=== PATIENT | female | born 1950 | race Caucasian/White ===

== ENCOUNTER 2018-09-17 11:34 | Day surgery (SDC) | payer OTHER, SELFPAY ==
[2018-09-14 10:36] VITALS: BMI 25.2
[2018-09-17 11:51] VITALS: BP 128/73; PULSE 83; RESP 16; TEMP 36.8; O2SAT 98; BMI 25.2
--- NOTE | 2018-09-17 13:14 | PM.OP.1 ---
Procedure & Clinicians Procedure: Arthrodesis 1st MTPJ, left foot Same procedure as scheduled: Yes Indications: Painful bunion/arthritis, left foot Surgeon: Rafa Calles Click Yes if Unassisted: Yes Operative Notes Prosthetic devices, grafts, tissues, transplants, or devices: [place] 28 1st MTPJ locking plate and screws Estimated Blood Loss (mL): 5 Blood products transfused: none Procedure in detail: Operation: Patient was taken from the day surgery back to the OR via gurney, after having been antibiotic prophylaxis. She was placed on the OR table in the supine position. General anesthesia was induced by the anesthesiologist, followed by local anesthetic blockade with 50 50 lidocaine. A high thigh tourniquet was placed, however, it was not utilized throughout the case. Foot was then prepped and draped in the usual sterile fashion from toes to knee. Procedure: Arthrodesis, 1st MTP joint, left foot (40154) Attention was directed toward the dorsum of the left foot. Just medial to midline, a longitudinal incision was placed centered over the 1st MTP joint, medial to the EHL tendon. Sharp and blunt dissection were carried down through the subcutaneous tissue layer, taking care to retract all vital structures and cauterized as necessary for adequate hemostasis. First MTP was then mobilized to allow for adequate visualization. There was extensive osteophytic deformity off the dorsum of the joint which required removal. Using appropriate instrumentation of power reamers, the 1st metatarsal head and base of the proximal phalanx was denuded of remaining cartilage. It was then fenestrated 15-20 times with a .054 in K-wire. Toe was then placed into anatomical alignment, which for this patient, was just a couple degrees adducted, temporarily pinned and then permanently fixated with an appropriately sized 4.0 partially threaded lag screw from medial to lateral, using the included plate jig. Good compression was found on tightening down that screw. The remaining fixation was then applied over the dorsum through the various locking holes utilizing a combination of 2.7 mm screws in the phalanx and 3.5 mm locking screws in the 1st metatarsal. Fixation was then confirmed with intraop fluoroscopy. The wound was aggressively irrigated with antibiotic solution. Closure was then performed in layers utilizing 3-0, 4-0, and 4-0 Vicryl for the capsule, subcu and skin respectively. Steri-Strips were placed, postop injection of 0.5% Marcaine plain administered and a light gauze compression bandage was applied. Patient will be placed into her removable cast boot in the recovery room. Patient tolerated the procedure and anesthesia without any apparent complications. She left the OR with vital signs stable and digital perfusion intact. She will be allowed to bear partial weight on the foot as long as she has boot in place. No be seen for 1st p.o. be the [place] office next week. Patient already has a postop appointment set up as well as been given a prescription for postop analgesics. Condition: stable Disposition: PACU Plan for aftercare: Fu visit set for the [place] office next week.
--- NOTE | 2018-09-17 13:20 | P.OP_ITS ---
Procedure & Clinicians Procedure: Arthrodesis 1st MTPJ, left foot Same procedure as scheduled: Yes Indications: Painful bunion/arthritis, left foot Surgeon: Rafa Calles Click Yes if Unassisted: Yes Operative Notes Prosthetic devices, grafts, tissues, transplants, or devices: [place] 28 1st MTPJ locking plate and screws Estimated Blood Loss (mL): 5 Blood products transfused: none Procedure in detail: Operation: Patient was taken from the day surgery back to the OR via gurney, after having been antibiotic prophylaxis. She was placed on the OR table in the supine position. General anesthesia was induced by the anesthesiologist, followed by local anesthetic blockade with 50 50 lidocaine. A high thigh tourniquet was placed, however, it was not utilized throughout the case. Foot was then prepped and draped in the usual sterile fashion from toes to knee. Procedure: Arthrodesis, 1st MTP joint, left foot (59006) Attention was directed toward the dorsum of the left foot. Just medial to midline, a longitudinal incision was placed centered over the 1st MTP joint, medial to the EHL tendon. Sharp and blunt dissection were carried down through the subcutaneous tissue layer, taking care to retract all vital structures and cauterized as necessary for adequate hemostasis. First MTP was then mobilized to allow for adequate visualization. There was extensive osteophytic deformity off the dorsum of the joint which required removal. Using appropriate instrumentation of power reamers, the 1st metatarsal head and base of the proximal phalanx was denuded of remaining cartilage. It was then fenestrated 15- 20 times with a .054 in K-wire. Toe was then placed into anatomical alignment, which for this patient, was just a couple degrees adducted, temporarily pinned and then permanently fixated with an appropriately sized 4.0 partially threaded lag screw from medial to lateral, using the included plate jig. Good compression was found on tightening down that screw. The remaining fixation was then applied over the dorsum through the various locking holes utilizing a combination of 2.7 mm screws in the phalanx and 3.5 mm locking screws in the 1st metatarsal. Fixation was then confirmed with intraop fluoroscopy. The wound wa s aggressively irrigated with antibiotic solution. Closure was then performed in layers utilizing 3-0, 4-0, and 4-0 Vicryl for the capsule, subcu and skin respectively. Steri-Strips were placed, postop injection of 0.5% Marcaine plain administered and a light gauze compression bandage was applied. Patient will be placed into her removable cast boot in the recovery room. Patient tolerated the procedure and anesthesia without any apparent complications. She left the OR with vital signs stable and digital perfusion intact. She will be allowed to bear partial weight on the foot as long as she has boot in place. No be seen for 1st p.o. be the [place] office next week. Patient already has a postop appointment set up as well as been given a prescription for postop analgesics. Condition: stable Disposition: PACU Plan for aftercare: Fu visit set for the [place] office next week.
[2018-09-17] MEDS: CEFAZOLIN 2 GM/100 ML FROZ.PIGGY IV (13:42)
--- NOTE | 2018-09-17 13:56 | SUR.OPER ---
Supine on padded OR bed, head on pillow, arms secured on padded arm boards at <90 degrees abduction, legs uncrossed, safety belt at thigh, tape over blanket over lower legs.
[2018-09-17] MEDS: LIDOCAINE 2% INJ SDV 5 ML INJ (14:03)
[2018-09-17] MEDS: LIDOCAINE 1% W/EPI INJ 20 ML INJ (14:04)
--- NOTE | 2018-09-17 14:08 | SUR.OPER ---
TOURNIQUET APPLLIED BUT NOT INFLATED.
[2018-09-17] MEDS: BUPIVACAINE 0.5% (PF) VIAL 30 ML INJ (15:03)
[2018-09-17] MEDS: LACTATED RINGERS 1,000 ML 42 ML IV (15:08)
[2018-09-17 15:17] VITALS: BP 125/76; PULSE 75; RESP 15; TEMP 36.3; O2SAT 98
[2018-09-17] MEDS: fentaNYL 100 MCG/2 ML INJ 50 MCG IV (15:29)
[2018-09-17 15:32] VITALS: BP 127/76; PULSE 78; RESP 15; O2SAT 97
[2018-09-17] MEDS: HYDROCODONE/ACET 5/325 TABLET 1 TAB PO (15:50)
[2018-09-17 16:00] VITALS: BP 134/76; PULSE 67; RESP 15; TEMP 36.1; O2SAT 99
[2018-09-17 16:25] VITALS: BP 134/75; PULSE 64; RESP 16; TEMP 36.1; O2SAT 99
== END 2018-09-17 16:33 ==
LOC: OR 11:38
PROVIDERS: Family Provider Family Medicine; Visit Provider Podiatrist
PROC: (CPT 28750; principal; 2018-09-17 13:00)
DX: M20.22 Hallux rigidus, left foot (principal); M19.072 Primary osteoarthritis, left ankle and foot
CPT/HCPCS: 28750; J0690; J2250; J2704; J3010

== ENCOUNTER → 2019-08-09 08:50 | Outpatient (CLI) | payer OTHER, SELFPAY | PROVIDERS: PCP Family Medicine | DX: M85.851 Other specified disorders of bone density and structure, right thigh (principal); Z78.0 Asymptomatic menopausal state | CPT/HCPCS: 77080 ==

== ENCOUNTER → 2022-07-23 11:28 | Outpatient (CLI) | payer MEDICARE, SELFPAY ==
[2022-07-24 20:04] LABS: Add Manual Diff / Slide Review NO; Basophils Absolute Auto 0 /uL (0-100); Basophils Percent Auto 0.6 % (0-2); Eosinophils Absolute Auto 100 /uL (0-450); Eosinophils Percent Auto 1.8 % (2-4); Hematocrit 41.4 % (36-46); Hemoglobin 13.8 g/dL (12.0-16.0); Lymphocytes Absolute Auto 1600 /uL (1100-4500); Lymphocytes Percent Auto 27.3 % (25-40); Mean Corpuscular HGB Conc 33.2 % (30-36); Mean Corpuscular Hemoglobin 29.6 PG (26-34); Monocytes Absolute Auto 500 /uL (0-900); Monocytes Percent Auto 8.1 % (3-14); Neutrophils Absolute Auto 3600 /uL (1500-7000); Neutrophils Percent Auto 62.2 % (50-75); Platelet Count 252 X10^3/uL (150-400); Red Blood Cell Count 4.66 X10^6/uL (4.0-5.2); Red Cell Distribution Width 14.1 % (11.6-14.8); White Blood Cell Count 5.9 X10^3/uL (4.5-11.0)
[2022-07-24 20:18] LABS: Alanine Aminotransferase 30 IU/L (<35); Albumin 4.3 g/dL (3.5-5.0); Albumin Globulin Ratio 1.4 (1.0-2.8); Alkaline Phosphatase 81 U/L (38-126); Aspartate Aminotransferase 26 IU/L (14-36); BUN Creatinine Ratio 17.5 (6-22); Bilirubin Total 0.6 mg/dL (0.2-1.3); Blood Urea Nitrogen 18 mg/dL (7-17); Carbon Dioxide 27 mmol/L (22-32); Chloride 101 mmol/L (98-107); Cholesterol 231 mg/dL (140-199); Estimated Glomerular Filt Rate 59 mL/min (>60); Globulin 3.1 g/dL (1.7-4.1); Glucose 87 mg/dL (80-110); HDL Cholesterol 56 mg/dL (40-60); HEMOLYSIS < 15 (0-50); LDL Cholesterol Calculated 157 mg/dL (<100); Potassium 4.3 mmol/L (3.4-5.1); Sodium 137 mmol/L (137-145); Total Protein 7.4 g/dL (6.3-8.2); Triglycerides 91 mg/dL (35-150)
== END ==
PROVIDERS: PCP Physician Assistant; Visit Provider Physician Assistant
DX: R51.9 Headache, unspecified (principal); R53.81 Other malaise; R53.83 Other fatigue; Z82.49 Family history of ischemic heart disease and other diseases of the circulatory system
CPT/HCPCS: 80053; 80061; 84443; 85025

== ENCOUNTER → 2023-04-27 10:11 | Outpatient (CLI) | payer MEDICARE, SELFPAY | PROVIDERS: PCP Physician Assistant; Visit Provider Physician Assistant | DX: R30.0 Dysuria (principal) | CPT/HCPCS: 87086 ==

== ENCOUNTER → 2023-05-05 12:39 | Outpatient (CLI) | payer MEDICARE, SELFPAY | PROVIDERS: PCP Physician Assistant; Visit Provider Physician Assistant | DX: R30.0 Dysuria (principal) | CPT/HCPCS: 87086 ==

== ENCOUNTER → 2023-05-08 14:30 | Outpatient (CLI) | payer MEDICARE, SELFPAY | PROVIDERS: PCP Physician Assistant; Visit Provider Family Medicine | DX: R31.9 Hematuria, unspecified (principal) | CPT/HCPCS: 87086 ==

== ENCOUNTER → 2024-05-16 15:40 | Outpatient (CLI) | payer MEDICARE, SELFPAY | PROVIDERS: PCP Physician Assistant; Visit Provider Physician Assistant | DX: R30.0 Dysuria (principal); R30.9 Painful micturition, unspecified | CPT/HCPCS: 87086 ==

== ENCOUNTER → 2024-05-18 11:27 | Outpatient (CLI) | payer MEDICARE, SELFPAY | PROVIDERS: PCP Physician Assistant; Visit Provider Nurse Practitioner Adult Health | DX: R30.0 Dysuria (principal); N89.8 Other specified noninflammatory disorders of vagina | CPT/HCPCS: 87077; 87086; 87186; 87798; 87801 ==

== ENCOUNTER → 2024-05-26 10:25 | Outpatient (CLI) | payer MEDICARE, SELFPAY ==
[2024-05-26 20:43] LABS: Add Manual Diff / Slide Review NO; Basophils Absolute Auto 0 /uL (0-100); Basophils Percent Auto 0.7 % (0-2); Eosinophils Absolute Auto 100 /uL (0-450); Eosinophils Percent Auto 2.2 % (2-4); Hematocrit 42.9 % (36-46); Hemoglobin 14.3 g/dL (12.0-16.0); Lymphocytes Absolute Auto 800 /uL (1100-4500); Lymphocytes Percent Auto 14.3 % (25-40); Mean Corpuscular HGB Conc 33.4 % (30-36); Mean Corpuscular Hemoglobin 29.7 PG (26-34); Monocytes Absolute Auto 500 /uL (0-900); Monocytes Percent Auto 9.1 % (3-14); Neutrophils Absolute Auto 4100 /uL (1500-7000); Neutrophils Percent Auto 73.7 % (50-75); Platelet Count 240 X10^3/uL (150-400); Red Blood Cell Count 4.82 X10^6/uL (4.0-5.2); Red Cell Distribution Width 14.1 % (11.6-14.8); White Blood Cell Count 5.6 X10^3/uL (4.5-11.0)
[2024-05-26 20:53] LABS: Alanine Aminotransferase 609 IU/L (<35); Albumin 3.9 g/dL (3.5-5.0); Albumin Globulin Ratio 1.3 (1.0-2.8); Alkaline Phosphatase 171 U/L (38-126); Aspartate Aminotransferase 528 IU/L (14-36); BUN Creatinine Ratio 17.4 (6-22); Bilirubin Total 0.9 mg/dL (0.2-1.3); Blood Urea Nitrogen 15 mg/dL (7-17); Calcium 9.1 mg/dL (8.4-10.2); Carbon Dioxide 27 mmol/L (22-32); Chloride 101 mmol/L (98-107); Cholesterol 212 mg/dL (140-199); Estimated Glomerular Filt Rate > 60 mL/min (>60); Glucose 100 mg/dL (80-110); HDL Cholesterol 75 mg/dL (40-60); HEMOLYSIS < 15 (0-50); LDL Cholesterol Calculated 122 mg/dL (<100); Potassium 4.1 mmol/L (3.4-5.1); Sodium 134 mmol/L (137-145); Total Protein 6.9 g/dL (6.3-8.2); Triglycerides 75 mg/dL (35-150)
[2024-05-26 21:35] LABS: Hep C Virus Ab w/Reflex Quant NEGATIVE s/c (NEGATIVE)
== END ==
PROVIDERS: PCP Physician Assistant; Visit Provider Physician Assistant
DX: I10 Essential (primary) hypertension (principal); E78.00 Pure hypercholesterolemia, unspecified
CPT/HCPCS: 80053; 80061; 85025; 86803

== ENCOUNTER → 2024-06-03 12:27 | Outpatient (CLI) | payer MEDICARE, SELFPAY ==
[2024-06-03 18:57] LABS: Appearance Urine UA CLEAR; Bilirubin Urine UA NEGATIVE (NEGATIVE); Color Urine UA YELLOW; Glucose Urine UA NEGATIVE (Negative); Ketones Urine UA NEGATIVE (NEGATIVE); Leukocyte Esterase Urine UA 2+ (NEGATIVE); Nitrite Urine UA NEGATIVE (Negative); Occult Blood Urine UA TRACE-INTACT (Negative); Protein Urine UA NEGATIVE (Negative); Specific Gravity Urine UA <=1.005 (1.000-1.035); Urobilinogen Urine UA 0.2 E.U./dL (0.2)
[2024-06-03 18:59] LABS: pH Urine UA 5.5 (4.5-8.0)
[2024-06-03 19:03] LABS: RBC Urine 1-5/HPF (0-5/HPF); Urine Volume 10mL (spun); WBC Urine 10-30/HPF (0-5/HPF)
[2024-06-03 19:04] LABS: Amorphous Sediment Urine 2+; Bacteria Urine Moderate (10-30); Culture Indicated Urine Specimen Cultured; Squamous Epithelial Cell Urine 1-5 /HPF (0-5/HPF)
== END ==
PROVIDERS: PCP Physician Assistant; Referring Provider Physician Assistant; Visit Provider Physician Assistant
DX: N30.01 Acute cystitis with hematuria (principal)
CPT/HCPCS: 81001; 87077; 87086; 87186

== ENCOUNTER → 2024-06-08 08:41 | Outpatient (CLI) | payer MEDICARE, SELFPAY ==
--- NOTE | 2024-06-08 08:43 | DI.US.S_ITS ---
PROCEDURE: US ABDOMEN COMPLETE INDICATIONS: ELEVATED LIVER ENZYMES AND BLOATED ABDOMEN TECHNIQUE: Real-time scanning was performed of the abdominal and retroperitoneal organs, with image documentation. COMPARISON: None. FINDINGS: Liver: Liver is normal in size and homogeneous in echotexture. There is increased hepatic echogenicity. Multiple hepatic cyst/cysts clusters are visualized. Gallbladder: No gallstones identified. Normal gallbladder wall thickness. No pericholecystic fluid. Negative sonographic Love sign. Biliary ducts: Intrahepatic bile ducts are non-dilated. Extrahepatic bile duct caliber measures 5.5 mm. Normal is 6-7 mm or less in diameter, or 10 mm or less post-cholecystectomy. Pancreas: Visualized portions of the pancreas are sonographically normal. Spleen: Spleen is normal in size and homogeneous in echotexture. Kidneys: Kidneys are normal in size and echotexture. Right kidney measures 9.6 cm long; left kidney measures 11.2 cm long. No hydronephrosis or nephrolithiasis. No solid masses. Aorta: Visualized aorta is normal in caliber at less than 3 cm. Query trace/mild atherosclerotic disease of the distal abdominal aorta. Iliacs: Proximal common iliac arteries are normal in caliber at less than 2.5 cm. IVC: Intrahepatic inferior vena cava is patent. Miscellaneous: No free abdominal fluid. IMPRESSION: Increased hepatic echogenicity can be seen in the setting of hepatic steatosis. Recommend clinical correlation. Multiple hepatic cysts. Approved by: Anastasia Andrew M.D.,Ph.D. on 06/08/2024 at 11:11
== END ==
PROVIDERS: PCP Physician Assistant; Referring Provider Physician Assistant; Visit Provider Physician Assistant
DX: K76.89 Other specified diseases of liver (principal); R74.8 Abnormal levels of other serum enzymes; R14.0 Abdominal distension (gaseous)
CPT/HCPCS: 76700

== ENCOUNTER → 2024-06-08 09:35 | Outpatient (CLI) | payer MEDICARE, SELFPAY ==
--- NOTE | 2024-06-08 09:42 | DI.RAD.S_ITS ---
PROCEDURE: XR DEXA AXIAL SKELETON INDICATIONS: osteoporosis screening COMPARISON: [facility], MAIN, XR DEXA AXIAL SKELETON, 08/09/2019, 9:20. FINDINGS: Lumbar Spine: Bone mineral density 1.019 g/cm2, T score -0.3, previously 0. Left Hip: Bone mineral density 0.834 g/cm2, T score -0.9, previously -1. Left Femoral Neck: Bone mineral density 0.619 g/cm2, T score -2.1, previously -1.9. Right Hip: Bone mineral density 0.750 g/cm2, T score -1.6, previously -1.1. Right Femoral Neck: Bone mineral density 0.543 g/cm2, T score -2.8, previously -2.3. Fracture Risk Calculation (when applicable): Not reported due to osteoporosis. (T score greater or equal to -1.0 to: NORMAL) (T score from -1.1 to -2.4: OSTEOPENIA) (T score less than or equal to -2.5: OSTEOPOROSIS) IMPRESSION: Osteoporosis. Decreased bone mineral density of the right hip compared with prior. Follow-up guidelines as follows: Osteoporosis: Consider a repeat DEXA and Vertebral Fracture Assessment (VFA) exam in 2 years or sooner if medically necessary, to reassess this patient's status. Osteopenia: Consider a repeat DEXA in 2-3 years to reassess this patient's status, or if there is a new clinical indication. Normal: Consider a repeat DEXA in 5 years or sooner, or if there is a new clinical indication. All treatment decisions require clinical judgment and consideration of individual patient factors, including patient preferences, comorbidities, previous drug use, risk factors not captured in the FRAX model (e.g., frailty, falls, vitamin D deficiency, increased bone turnover, interval significant decline in bone density ) and possible under- or over-estimation of fracture risk by FRAX. In addition, the NOF Guide recommends that FDA-approved medical therapies be considered in postmenopausal women and men age >= 50 years with a: * Hip or vertebral (clinical or morphometric) fracture * T-score of <=-2.5 at the spine or hip * Ten-year fracture probability by FRAX of >= 3% for hip fracture or >=20% for major osteoporotic fracture. People with diagnosed cases of osteoporosis or at high risk for fracture should have regular bone mineral density tests. For patients eligible for Medicare, routine testing is allowed once every 2 years. The testing frequency can be increased to one year for patients who have rapidly progressing disease, those who are receiving or discontinuing medical therapy to restore bone mass, or have additional risk factors. Dictated by: Bairon Kellogg M.D. on 06/08/2024 at 11:31 Approved by: Bairon Kellogg M.D. on 06/08/2024 at 11:32
== END ==
PROVIDERS: PCP Physician Assistant; Referring Provider Nurse Practitioner Adult Health; Visit Provider Nurse Practitioner Adult Health
DX: N95.9 Unspecified menopausal and perimenopausal disorder (principal); Z13.820 Encounter for screening for osteoporosis; M81.0 Age-related osteoporosis without current pathological fracture; K76.89 Other specified diseases of liver; R74.8 Abnormal levels of other serum enzymes; R14.0 Abdominal distension (gaseous)
CPT/HCPCS: 76700; 77080

== ENCOUNTER → 2024-07-28 08:04 | Outpatient (CLI) | payer MEDICARE, SELFPAY ==
[2024-07-28 20:23] LABS: Alanine Aminotransferase 26 IU/L (<35); Albumin Globulin Ratio 1.3 (1.0-2.8); Alkaline Phosphatase 73 U/L (38-126); Aspartate Aminotransferase 34 IU/L (14-36); BUN Creatinine Ratio 17.6 (6-22); Bilirubin Total 0.6 mg/dL (0.2-1.3); Bilirubin Unconjugated 0.3 mg/dL (0.0-1.1); Blood Urea Nitrogen 18 mg/dL (7-17); Calcium 9.2 mg/dL (8.4-10.2); Carbon Dioxide 27 mmol/L (22-32); Chloride 104 mmol/L (98-107); Estimated Glomerular Filt Rate 59 mL/min (>60); Globulin 3.1 g/dL (1.7-4.1); Glucose 95 mg/dL (80-110); Lipase 69 U/L (23-300); Sodium 134 mmol/L (137-145); Total Protein 7.1 g/dL (6.3-8.2)
[2024-07-28 20:24] LABS: HEMOLYSIS 57 (0-50); Potassium 4.2 mmol/L (3.4-5.1)
[2024-07-28 20:51] LABS: TSH w/ Reflex to FT4 4.29 uIU/mL (0.47-4.68)
[2024-07-28 22:26] LABS: Vitamin D 25 Hydroxy (D3) 30.9 ng/mL (30.0-100.0)
== END ==
PROVIDERS: PCP Physician Assistant; Visit Provider Physician Assistant
DX: Z13.21 Encounter for screening for nutritional disorder (principal); Z12.11 Encounter for screening for malignant neoplasm of colon; R14.0 Abdominal distension (gaseous); R74.8 Abnormal levels of other serum enzymes; I10 Essential (primary) hypertension; M81.0 Age-related osteoporosis without current pathological fracture
CPT/HCPCS: 80053; 80076; 82306; 83690; 84443

== ENCOUNTER → 2024-12-13 14:50 | Outpatient (CLI) | payer MEDICARE, SELFPAY ==
--- NOTE | 2024-12-13 14:53 | DI.US.S_ITS ---
PROCEDURE: US PELVIC COMPLETE INDICATIONS: pelvic pain and fullness TECHNIQUE: Real-time scanning was performed of the pelvic organs, with image documentation. Additional endovaginal scanning was necessary due to incomplete visualization of the adnexal and endometrial structures by transabdominal scanning. COMPARISON: None. FINDINGS: Uterus: Uterus is anteverted and normal in size at 6.7 x 2.7 x 4.1 cm. The myometrium is heterogeneous. The endometrium measures 1.9 mm combined thickness. A right lateral subserosal fibroid measures 1.9 x 1.9 x 2.4 cm. Ovaries: The right ovary measures 2.3 x 1.3 x 1.3 cm, with a calculated ovarian volume of 2.1 cc. The left ovary measures 2.7 x 2.0 x 1.3 cm, with a calculated ovarian volume of 3.8 cc. The ovaries have a normal sonographic appearance. Less than 12 follicles can be seen in each ovary. No adnexal masses are seen. Other: No pathologic free abdominal or pelvic fluid. IMPRESSION: Right lateral 2.4 cm subserosal fibroid. Otherwise normal pelvic ultrasound. Approved by: Eitan Thakur M.D. on 12/13/2024 at 19:36
== END ==
LOC: US 14:52
PROVIDERS: PCP Physician Assistant; Referring Provider Physician Assistant; Visit Provider Physician Assistant
DX: D25.2 Subserosal leiomyoma of uterus (principal); R10.2 Pelvic and perineal pain
CPT/HCPCS: 76830; 76856

== ENCOUNTER → 2025-06-13 10:17 | Outpatient (CLI) | payer MEDICARE, SELFPAY ==
[2025-06-13 19:32] LABS: Cholesterol 236 mg/dL (140-199); Glucose 98 mg/dL (70-99); HDL Cholesterol 74 mg/dL (40-60); Triglycerides 81 mg/dL (35-150)
[2025-06-13 20:21] LABS: Hep C Virus Ab w/Reflex Quant NEGATIVE s/c (NEGATIVE)
== END ==
PROVIDERS: PCP Physician Assistant; Visit Provider Family Medicine
DX: Z13.1 Encounter for screening for diabetes mellitus (principal); Z13.6 Encounter for screening for cardiovascular disorders
CPT/HCPCS: 80061; 82947; 86803